=== PATIENT | male | born 1975 | race Caucasian/White ===

== ENCOUNTER 2019-04-19 09:54 | Emergency (ER) | payer BC, OTHER ==
[~2019-04-19] VITALS: Ht 180.3 cm; Wt 88.5 kg
[2019-04-19 10:08] VITALS: BP 116/74
[2019-04-19] MEDS ORDERED: KETOROLAC TROMETHAMINE INJ 60 MG/2 ML VIAL IM ONE ×2 (10:30→10:33)
== END 2019-04-19 11:26 | disposition home or self-care (01) ==
LOC: ER 10:01
DX: S52.592A Other fractures of lower end of left radius, initial encounter for closed fracture (principal); W18.39XA Other fall on same level, initial encounter; Y93.67 Activity, basketball; Y92.39 Other specified sports and athletic area as the place of occurrence of the external cause; Y99.8 Other external cause status
CPT/HCPCS: 29125; 73110; 96372; 99283; J1885

== ENCOUNTER 2025-08-11 20:06 | Emergency (ER) | payer BC, OTHER ==
[~2025-08-11] VITALS: Ht 180.3 cm; Wt 99.8 kg
[2025-08-11] MEDS ORDERED: TETRAcaine 5 ML BOTTLE ONE (21:22)
[2025-08-11] MEDS ORDERED: FLUORESCEIN SODIUM OPHTH 1 EA STRIP ONE (21:22)
[2025-08-11] MEDS: FLUORESCEIN SODIUM OPHTH 1 EA STRIP OP ONE (21:23)
[2025-08-11] MEDS: TETRAcaine 5 ML BOTTLE EACHEYE ONE (21:23)
[2025-08-11] MEDS ORDERED: POLY10DR3 EACHEYE (21:37)
[2025-08-11] MEDS ORDERED: IBUP-1490 PO (21:37)
[2025-08-11] MEDS: TDAP [DIPH/PERTUSSIS/TET] 0.5 ML VIAL IM ONE (21:48)
[2025-08-11] MEDS: IBUPROFEN 600 MG TABLET PO ONE (21:49)
[2025-08-11 22:30] VITALS: BP 150/96; TEMP 98.4; O2SAT 94
== END 2025-08-11 22:30 | disposition home or self-care (01) ==
LOC: ER 20:11
DX: S01.112A Laceration without foreign body of left eyelid and periocular area, initial encounter (principal); X58.XXXA Exposure to other specified factors, initial encounter; Y93.67 Activity, basketball; Y92.89 Other specified places as the place of occurrence of the external cause; Y99.9 Unspecified external cause status
CPT/HCPCS: 90715